=== PATIENT | male | born 1960 | race Caucasian/White ===

== ENCOUNTER 2018-01-20 16:05 | Emergency (ER) | payer OTHER, SELFPAY ==
--- NOTE | 2018-01-20 15:34 | RAD_ITS ---
STUDY: X-RAY - LEFT KNEE REASON FOR EXAM: Male, 57 years old. Pain while running. TECHNIQUE: 3 view(s) of the knee. COMPARISON: None. FINDINGS: Normal visualized distal femur. There is bony productivity at the insertion of the patellar tendon on the tibial tubercle, thought to be calcified tendinopathy. Normal visualized proximal fibula. Normal proximal tibiofibular articulation. There is no acute fracture, dislocation or destructive osseous pathology. Normal medial femorotibial compartment. Normal lateral femorotibial compartment. Normal patellofemoral articulation. There is a soft tissue prominence in the suprapatellar region suggesting a small volume joint effusion. The soft tissue structures are unremarkable. RAD/Knee 4 or More Views IMPRESSION: 1. Bony productivity at the insertion of the patellar tendon on the tibial tubercle. Question calcific tendinopathy. 2. Small suprapatellar joint effusion. Electronically Signed: Leandro Martinez DO at 14:52 EDT Tel [phone], Service support ,
--- NOTE | 2018-01-20 16:05 | DT_ITS ---
This patient was seen during an EMR downtime January 20, 2018 - January 27, 2018. This patient may have a combination of paper and electronic documentation or all paper documentation. All documentation is viewable within the e-chart portion of [facility] for each patient visit.
== END 2018-01-20 18:33 | disposition home or self-care (01) ==
LOC: ED 01-22 13:53
PROVIDERS: Emergency Provider Emergency Medicine; Family Provider Internal Medicine; PCP Internal Medicine
DX: S83.92XA Sprain of unspecified site of left knee, initial encounter (principal); X58.XXXA Exposure to other specified factors, initial encounter; Y93.9 Activity, unspecified; Y92.9 Unspecified place or not applicable
CPT/HCPCS: 73564; 99282

== ENCOUNTER → 2018-02-17 10:58 | Outpatient (CLI) | payer OTHER, SELFPAY ==
--- NOTE | 2018-02-17 11:31 | EKG12_ITS ---
Test Reason : PRE OP Blood Pressure : / mmHG Vent. Rate : 068 BPM Atrial Rate : 068 BPM P-R Int : 138 ms QRS Dur : 086 ms QT Int : 384 ms P-R-T Axes : 072 079 068 degrees QTc Int : 408 ms Normal sinus rhythm Normal ECG Confirmed by CARLEY OLIVER, CAREN ([id number]), editor newspaper STEVAN VINES ([id number]) on 02/18/2018 3:47:38 PM Referred By: Homero Rodas Confirmed By:CAREN HOWE MD
[2018-02-17 12:34] LABS: Hematocrit 44.8 % (40-54); Hemoglobin 15.1 g/dl (13.0-16.5); Mean Corp Hgb Conc 33.7 g/gl (32-36); Mean Corpuscular Hgb 32.3 pg (27.0-32.0); Mean Corpuscular Volume 95.7 fL (80-94); Mean Platelet Vol. 10.3 fl (6.2-12.0); Platelet Count 290 K/mm3 (150-450); RBC Distribution Width CV 12.7 % (11.6-14.6); RBC Distribution Width SD 43.2 fl (35.1-43.9); Red Blood Count 4.68 M/mm3 (4.6-6.2); White Blood Count 5.6 K/mm3 (4.4-11.0)
[2018-02-17 12:37] LABS: Scan Indicated on CBC? Y/N NO
[2018-02-17 12:49] LABS: Anion Gap 6 (5-15); BUN 26 mg/dL (7-18); BUN/Creat Ratio 25.7 RATIO (10-20); Calcium,Total 8.8 mg/dL (8.5-10.1); Chloride 107 mmol/L (98-107); Creatinine, Serum 1.01 mg/dL (0.70-1.30); EST Glomerular Filtration Rate 81 mL/min (>60); Est Glom Filt Rate - Afr Amer 98 mL/min (>60); Glucose 102 mg/dL (74-106); Potassium 4.4 mmol/L (3.5-5.1); Sodium Level 140 mmol/L (136-145)
== END ==
PROVIDERS: Visit Provider Orthopaedic Surgery
DX: Z01.818 Encounter for other preprocedural examination (principal)
CPT/HCPCS: 36415; 80048; 85027; 93005

== ENCOUNTER 2018-03-17 17:35 | Emergency (ER) | payer OTHER, SELFPAY ==
[2018-03-17 17:36] VITALS: BP 109/78; PULSE 75; RESP 16; TEMP 37; O2SAT 98; BMI 24.5
--- NOTE | 2018-03-17 18:07 | RAD_ITS ---
STUDY: X-RAY - RIGHT WRIST REASON FOR EXAM: Male, 57 years old. Pain. Injury TECHNIQUE: 3 view(s) of the wrist were obtained. COMPARISON: None. FINDINGS: Normal visualized distal radius and ulna. Normal radiocarpal articulation. Normal distal radioulnar articulation. Normal carpal bones. Normal carpal articulations. Normal carpometacarpal articulation of the thumb. Normal second through fifth carpometacarpal articulations. Normal visualized metacarpal bones. The soft tissue structures are unremarkable. There is no demonstrated acute fracture. RAD/Wrist min 3 Views IMPRESSION: Normal x-ray examination of the wrist. Electronically Signed: Daniel Farfan MD at 19:33 EDT , Service support ,
--- NOTE | 2018-03-17 18:08 | ED.VISSUMM ---
- ER Visit Summary Date of Service: 03/17/18 Chief Complaint: Right hand pain History of Present Illness: The patient is a 57 M presenting with right hand pain. Patient states on Saturday he was on a ladder power washing. He lost his balance and fell. He caught himself with his right hand. He states he did not hit his head or lose consciousness. He complains of persistent pain and swelling to the right hand. He has tried naproxen at home. He denies other injuries. Physical Examination: Vitals are stable. Patient is afebrile. Alert no acute distress. HEENT exam is unremarkable. Neck is nontender Lungs are clear and equal bilaterally. Heart is regular rate and rhythm. Extremities right hand dorsal swelling, diffuse mild tenderness, AFROM without pain, normal cap refill Skin is warm and dry. No focal neurologic deficit. Remainder of exam is unremarkable. Emergency Department Course and Treatment: Right hand and wrist xray show no acute process. He declined splint. Advised to ice and elevate. Advised to continue naproxen at home. Advised follow-up with Dr. Rodas his orthopedic surgeon. Advised return to ED if worsening complaints. Disposition: Discharge home Impression: Right hand contusion This note was generated with [employer]) dictation software. It may contain incorrect words, spelling, and punctuation that were not noted in review of the chart prior to signing ED Disposition - Plan for ED Patient: Disposition: Home or Assisted Living Chief Complaint: Upper Extremity Injury Instructions: ED Contusion Upper Ext Prescriptions: Naproxen [Naprosyn] 500 mg PO BID PRN #20 tablet Referrals: Homero Rodas DO [STAFF PHYSICIAN] - Care Physician,No Primary [Primary Care Provider] -
--- NOTE | 2018-03-17 18:30 | RAD_ITS ---
STUDY: X-RAY - RIGHT HAND REASON FOR EXAM: Male, 57 years old. Injury. Pain TECHNIQUE: 3 view(s) of the hand. COMPARISON: None. FINDINGS: Normal radiocarpal articulation. Normal distal radioulnar joint. Normal visualized carpal bones. Normal carpal articulations Normal carpometacarpal articulation of the thumb. Normal second through fifth carpometacarpal joints. Normal metacarpi. Normal metacarpophalangeal joint of the thumb. Normal interphalangeal joint of the thumb. Normal proximal and distal phalanges of the thumb. Normal metacarpophalangeal joints of the second through fifth fingers. Normal proximal and distal interphalangeal joints of the second through fifth fingers. Normal phalanges of the second through fifth fingers. The soft tissue structures are unremarkable. There is no fracture. RAD/Hand Min 3 Views IMPRESSION: Normal x-ray examination of the hand. Electronically Signed: Daniel Farfan MD at 19:35 EDT , Service support ,
--- NOTE | 2018-03-17 19:48 | ED.DEP ---
ED Disposition - Plan for ED Patient: Chief Complaint: Upper Extremity Injury Instructions: ED Contusion Upper Ext Referrals: Care Physician,No Primary [Primary Care Provider] - Homero Rodas DO [STAFF PHYSICIAN] -
--- NOTE | 2018-03-17 19:55 | ED.DEP ---
ED Disposition - Plan for ED Patient: Chief Complaint: Upper Extremity Injury Instructions: ED Contusion Upper Ext Prescriptions: Naproxen [Naprosyn] 500 mg PO BID PRN #20 tablet Referrals: Homero Rodas DO [STAFF PHYSICIAN] - Care Physician,No Primary [Primary Care Provider] -
--- NOTE | 2018-03-17 20:05 | ED.RN ---
PATIENT REFUSED WRIST SPLINT
== END 2018-03-17 20:07 | disposition home or self-care (01) ==
PROVIDERS: Emergency Provider Emergency Medicine
DX: S60.221A Contusion of right hand, initial encounter (principal); W11.XXXA Fall on and from ladder, initial encounter; Y93.H9 Activity, other involving exterior property and land maintenance, building and construction; Y92.008 Other place in unspecified non-institutional (private) residence as the place of occurrence of the external cause; Y99.8 Other external cause status
CPT/HCPCS: 73110; 73130; 99282

== ENCOUNTER → 2019-07-02 | Outpatient (CLI) | payer OTHER, SELFPAY ==
[2019-07-02 18:14] LABS: Cholesterol 184 mg/dL (200); High Density Lipoprotein 50 mg/dL; PSA,Total - Annual Screen 0.53 ng/mL (0.00-4.00); Triglycerides 87 mg/dL; Very Low Density Lipoprotein 17 mg/dL (5-40)
== END | disposition home or self-care (01) ==
LOC: MFPLAB 16:49
PROVIDERS: Family Provider Family Medicine; PCP Family Medicine; Referring Provider Family Medicine; Visit Provider Nurse Practitioner Family
DX: Z00.00 Encounter for general adult medical examination without abnormal findings (principal); Z12.5 Encounter for screening for malignant neoplasm of prostate
CPT/HCPCS: 36415; 80061; 84153; G0103

== ENCOUNTER → 2020-06-15 | Outpatient (CLI) | payer OTHER, SELFPAY ==
--- NOTE | 2020-06-15 09:41 | US_ITS ---
HISTORY: PALP LUMP LEFT LAT NECK ADDITIONAL HISTORY: None provided. COMPARISON: None. TECHNIQUE: High-resolution grayscale and color Doppler sonography of the region of clinical concern in the left lateral neck. Number of images including paperwork: 13 FINDINGS: Normal morphology lymph nodes are seen in the region of clinical concern measuring 1.5 x 0.4 x 1.2 cm and 1.5 x 0.2 x 0.7 cm. US/Ext Non Vasc Limited/Soft Tiss IMPRESSION: Normal morphology lymph nodes in region of probable concern. Clinical follow-up recommended. at [id number] Reported and signed by: Kyara Cheng MD Electronically Signed: Kyara Cheng MD at 22:34 EDT Tel , Service support ,
== END | disposition home or self-care (01) ==
LOC: US 09:39
PROVIDERS: PCP Family Medicine; Referring Provider Family Medicine; Visit Provider Family Medicine
DX: R22.9 Localized swelling, mass and lump, unspecified (principal)
CPT/HCPCS: 76882

== ENCOUNTER 2021-08-12 18:25 | Emergency (ER) | payer OTHER, SELFPAY ==
[2021-08-12 18:26] VITALS: BP 154/79; PULSE 94; RESP 18; TEMP 36.9; O2SAT 98; BMI 26.9
--- NOTE | 2021-08-12 18:30 | EX.ED.DYSGE1 ---
HPI History of Present Illness Chief Complaint: Allergic Reaction Informant: patient Onset/Context/Timing Onset: Today (20-30 min) Context: Sudden Onset Timing: Continuous Quality: Tongue swelling, itchy, red all over Current Severity: Moderate Maximum Severity: Moderate Associated Symptoms Associated Symptoms: No dyspnea or chest tightness or lightheadedness/near syncope/syncope Narrative Narrative: Patient presenting with an acute allergic reaction that has been going on for 20 or 30 minutes, he states maybe started about an hour after he started drinking some red wine, and was snacking on some other foods today on [place]. He has never had this happen before. He takes no medications, including lisinopril. He has taken no [id number] medications today. He denies any other unusual exposures he can think of today. Prior similar symptoms: No Recent Illness/Hospitalization: No PFSH PFS Medical History Hay fever Home Medications prednisone 40 mg PO DAILY #6 tablet 08/12/21 [Rx Last Taken Unknown] Allergy/AdvReac Type Severity Reaction Status Date / Time No Known Allergies Allergy Verified 08/12/21 18:30 Family History (Updated 12/24/17 @ 11:40 by Debra Emery) Other Diabetes Social History Smoking Status: Never smoker alcohol intake: current alcohol intake frequency: holidays/special occasions only Alcohol type: wine ROS ROS ED Constitutional Constitutional ED: Denies chills or fever(s) Eyes Eyes: Denies change in vision or diplopia ENT ENT ED: Reports tongue swelling; Denies rhinorrhea or sore throat Cardiovascular Cardiovascular: Denies chest pain or palpitations Respiratory/Chest Respiratory/Chest: Denies cough or dyspnea Gastrointestinal Gastrointestinal: Denies abdominal pain, diarrhea, nausea or vomiting Genitourinary Genitourinary ED: Denies dysuria or hematuria Musculoskeletal Musculoskeletal: Denies back pain or neck pain Integumentary Reports erythema, pruritus and rash; Denies abscess Neurologic Neurologic: Denies headache(s), paresthesias or weakness Psychiatric Psychiatric: Reports anxiety; Denies suicidal thoughts EXAM Physical Exam Const Vital Signs: 08/12/21 18:26 08/12/21 18:31 08/12/21 20:14 Temperature 98.4 F Temperature Source Temporal Pulse Rate 94 84 76 Respiratory Rate 18 20 H 15 Blood Pressure 154/79 H 143/75 H 114/74 Blood Pressure Mean 104 97 87 Pulse Ox 98 97 97 Oxygen Delivery Method Room Air Room Air Room Air 08/12/21 20:44 Temperature Temperature Source Pulse Rate 76 Respiratory Rate 16 Blood Pressure 126/73 H Blood Pressure Mean 90 Pulse Ox 98 Oxygen Delivery Method Room Air Positive well nourished and well developed General Appearance ED: well developed and NAD HEENT Reports moist mucous membranes HEENT Narrative: Tongue is mildly diffusely edematous mostly anteriorly. Able to see posterior oropharynx which is normal. No trismus. No stridor. Lips normal. normocephalic and atraumatic Mouth ED: Yes lips normal Mouth: lips normal Eyes PERRL and EOMs intact bilaterally Neck full ROM and supple Resp normal respiratory effort and clear to auscultation bilaterally Cardio regular rate, regular rhythm and no murmurs Jugular Venous Distention: Negative for JVD Rate: tachycardic GI non-tender and non-distended Auscultation: normoactive bowel sounds Palpation: soft Back/Spine no CVA tenderness General Back: other FROM Extremity normal to inspection General Extremety ED: Negative for edema, pulses abnormal or tenderness General Extremity: Negative for edema or pulses abnormal Neuro oriented x3, CN's II-XII intact bilaterally and no sensory deficits noted Sensorium / Orientation: awake and alert Motor Exam: strength 5/5 throughout Psych mental status grossly normal, thought process normal, cooperative, speech normal and activity/motor behavior normal Mood & Affect: anxious Skin no wounds Skin Narrative: Patient is flushed/erythematous from head to toe; no other rashes or lesions, no bullae or petechia MDM MDM MDM Narrative Medical decision making narrative: Patient appears to be early anaphylaxis. His tongue is mildly edematous but he does not need immediate intubation; he is having no shortness of breath, he was able to swallow after this started occurring, and he has no stridor or imminent airway failure. Nurses place an IV during my evaluation, and we immediately gave him IV Solu-Medrol, Benadryl, Pepcid in addition to a dose of intramuscular EpiPen 0.3 mg (intramuscular epinephrine comes in EpiPen here, initially ordered 0.5 mg but it is not available). Soon thereafter he noticed quick improvement but his tongue was still swollen. An hour after the dose, his tongue was back to normal and his flushing/erythema was completely resolved. Vital signs normal. We continue to observe him for a total of almost 3.5 hours, he had no recurrence of any symptoms and felt back to normal. Therefore, I feel he is safe to discharge home, he is being discharged with an actual EpiPen since there are no pharmacies open to dispense this medication tonight on [place] evening, as well as prednisone 3-day course in addition to the Solu-Medrol he received here. I suspect it was a food that he ate that caused this, I recommend that he follow-up with his doctor or machine clerical verifier to be referred for testing. We discussed reasons to return they are comfortable with the plan. Critical Care Time Critical Care Time: Yes Critical care time (excluding procedures): 30-74 minutes (40 min), Including time spent:, Discussing w/Patient &/or Family/Assistant Corporate Controller and Performing Direct Patient Care at Bedside Discharge Plan Triage Chief Complaint: Allergic Reaction ED Provider: Daniel Samayoa Dx/Rx/DC Orders Clinical Impression: Anaphylaxis, Allergic angioedema Instructions: ED Anaphylaxis Prescriptions: New prednisone 20 MG tablet 40 mg PO DAILY Qty: 6 RF: 0 Primary Care Provider: Jared Khanna Referrals: Jared Khanna MD [Primary Care Provider] - As soon as possible Disposition Disposition: Home, Self Care
[2021-08-12 18:31] VITALS: BP 143/75; PULSE 84; RESP 20; O2SAT 97
[2021-08-12] MEDS: MethylPREDNISolone 125 MG/2 ML Vial IV (18:35)
[2021-08-12] MEDS: DiphenhydrAMINE 50 MG/ML Syringe 25 MG IV (18:35)
[2021-08-12] MEDS: Famotidine 200 MG/20 ML MDV 20 MG in 0.9% Normal Saline (Pres. free 8 ML 300 MG IV (18:39)
[2021-08-12 20:14] VITALS: BP 114/74; PULSE 76; RESP 15; O2SAT 97
[2021-08-12 20:44] VITALS: BP 126/73; PULSE 76; RESP 16; O2SAT 98
[2021-08-12 21:49] VITALS: BP 114/66; PULSE 73; RESP 21; O2SAT 96
== END 2021-08-12 21:51 | disposition home or self-care (01) ==
PROVIDERS: Emergency Provider Emergency Medicine; PCP Family Medicine
DX: T78.3XXA Angioneurotic edema, initial encounter (principal); Z79.52 Long term (current) use of systemic steroids
CPT/HCPCS: 96365; 96372; 96375; 99285; J7040; A4216; J3490

== ENCOUNTER 2022-04-12 21:33 | Emergency (ER) | payer OTHER, SELFPAY ==
[2022-04-12 21:34] VITALS: BP 103/75; PULSE 73; RESP 18; TEMP 36.6; O2SAT 98; BMI 24.4
--- NOTE | 2022-04-12 22:20 | EKG12_ITS ---
Test Reason : ALLERGIC REACTION Blood Pressure : / mmHG Vent. Rate : 068 BPM Atrial Rate : 068 BPM P-R Int : 138 ms QRS Dur : 090 ms QT Int : 382 ms P-R-T Axes : 072 067 045 degrees QTc Int : 406 ms Normal sinus rhythm Normal ECG Confirmed by SELENE OLIVER, LEE ([id number]), story editor SHELLIE RIVERA ([id number]) on 04/16/2022 9:31:16 AM Referred By: Confirmed By:RAMIREZ MORTON MD
--- NOTE | 2022-04-12 22:45 | EDS_ITS ---
HPI History of Present Illness Chief Complaint: Allergic Reaction Informant: patient Narrative Narrative: Patient presents for allergic reaction status post epinephrine at 9 PM. Patient was not at work and went he drank 3/4 glasses of wine he did not eat anything. An hour after drinking get home he noted generalized severe itching. He gave self epinephrine shot in the right thigh 2 minutes later he had a syncopal episode. He had some palpitations that time. He landed on the ground abrasion to the head. Denies headache. No anticoagulation medicines. He states a similar reaction this past July that which he found out that was the same wine he drank today. He had angioedema at that time he was seen in the ED he was nearly hospitalized. Currently feeling better with mild itching. EMS was called to the house who evaluated him. He was brought in by private vehicle. Prior similar symptoms: Yes PFSH [facility] Medical History Hay fever Home Medications epinephrine 0.3 mg/0.3 mL injection, auto-injector (EpiPen 2-Morgan) 0.3 mg (0.3 mL) IM .once PRN anaphylaxis #2 ea 04/12/22 [Rx Last Taken Unknown] famotidine 20 mg tablet (Pepcid) 20 mg PO BID #10 tabs 04/12/22 [Rx Last Taken Unknown] prednisone 20 mg tablet 60 mg PO DAILY #12 tabs 04/12/22 [Rx Last Taken Unknown] Allergy/AdvReac Type Severity Reaction Status Date / Time wine spirit Allergy Anaphylaxis Verified 04/12/22 21:37 Family History Other Diabetes Social History Smoking Status: Never smoker alcohol intake: current alcohol intake frequency: holidays/special occasions only Alcohol type: wine ROS ROS ED Constitutional Constitutional ED: Denies chills, fever(s) or sweats Eyes Eyes: Denies change in vision ENT ENT ED: Denies dysphagia or sore throat Cardiovascular Cardiovascular: Reports other Details: Syncope ; Denies chest pain, leg edema, palpitations or racing heartbeat Respiratory/Chest Respiratory/Chest: Denies cough, dyspnea or dyspnea on exertion Gastrointestinal Gastrointestinal: Denies abdominal pain, diarrhea, nausea or vomiting Genitourinary Genitourinary ED: Denies dysuria, hematuria or urinary frequency Musculoskeletal Musculoskeletal: Denies back pain, extremity pain or neck pain Integumentary Reports other Details: Generalized itching ; Denies rash or wounds Neurologic Neurologic: Denies headache(s), paresthesias or weakness EXAM Physical Exam Const Vital Signs: 04/12/22 21:34 04/12/22 23:58 Temperature 97.9 F Temperature Source Temporal Pulse Rate 73 73 Respiratory Rate 18 Blood Pressure 103/75 Blood Pressure Mean 84 Pulse Ox 98 Oxygen Delivery Method Room Air Positive well nourished and well developed General Appearance ED: well developed and NAD HEENT Reports moist mucous membranes HEENT Narrative: Abrasion right forehead x2, no active bleeding. normocephalic Eyes PERRL, EOMs intact bilaterally and conjunctivae normal General Eye ED: Yes normal appearance of both eyes Neck no lymphadenopathy and supple General: Negative for tenderness Chest Wall Chest: Negative for tenderness Resp normal respiratory effort and normal air movement Effort and Inspection: symmetric chest movement; Negative for respiratory distress Cardio regular rate, regular rhythm and no murmurs Peripheral Pulses: pulses 2+ throughout GI normal to inspection, nondistended, normoactive bowel sounds and non-tender Palpation: Negative for guarding or rebound tenderness present Back/Spine no CVA tenderness and no thoracic nor lumbar tenderness Extremity normal to inspection General Extremety ED: Negative for edema or tenderness General Extremity: Negative for edema Neuro oriented x3, CN's II-XII intact bilaterally and no sensory deficits noted Neuro Narrative: No focal neurological deficits. Sensorium / Orientation: awake and alert Skin no rashes or lesions noted and no wounds MDM MDM MDM Narrative Medical decision making narrative: Patient with allergic reaction to likely the wind with recurrent episodes. Status post epinephrine. Additional prednisone Pepcid and Benadryl was given. EKGs obtained due to syncopal episodes normal. Likely vasovagal episode. Has no focal deficits. Pruritic symptoms improved with treatment most reevaluations stable. Prescription Pepcid, prednisone, EpiPen written. He will use Benadryl as needed. Follow-up with his PCP. Return precautions. All questions were answered. EKG Initial EKG: Attestation: I personally reviewed and interpreted this EKG as follows: Comments: Sinus rate of 68, no ST or T wave changes QTC 406. Discharge Plan Triage Chief Complaint: Allergic Reaction ED Provider: Fab Myers Dx/Rx/DC Orders Clinical Impression: Allergic reaction, Syncope, Abrasion of face Instructions: Understanding Vasovagal Syncope, ED Abrasion, ED General Allergic Reactions Prescriptions: New prednisone 20 mg tablet 60 mg PO DAILY Qty: 12 0RF famotidine [Pepcid] 20 mg tablet 20 mg PO BID Qty: 10 0RF epinephrine [EpiPen 2-Morgan] 0.3 mg/0.3 mL auto-injector 0.3 mg IM .once PRN (Reason: anaphylaxis) Qty: 2 0RF Rx Instructions: repeat in 10 minutes if needed. for 2 doses Primary Care Provider: Jared Khanna Referrals: Jared Khanna MD [Primary Care Provider] - 1 Week Activity Restrictions/Additional Instructions: Take medication as prescribed. Return if any worsening symptoms. Use Benadryl 25 to 50 mg every 6 hours as needed. Disposition Disposition: Home, Self Care Discharge Date/Time: 04/13/22 00:12
[2022-04-12] MEDS: Famotidine 20 MG Tablet PO (22:47)
[2022-04-12] MEDS: predniSONE 20 MG Tablet 60 MG PO (22:47)
[2022-04-12] MEDS: DiphenhydrAMINE 25 MG Capsule PO (22:47)
[2022-04-12 23:58] VITALS: PULSE 73
== END 2022-04-13 00:12 | disposition home or self-care (01) ==
PROVIDERS: Emergency Provider Emergency Medicine; PCP Family Medicine; Visit Provider Emergency Medicine
DX: T78.40XA Allergy, unspecified, initial encounter (principal); R55 Syncope and collapse; S00.81XA Abrasion of other part of head, initial encounter; Z79.52 Long term (current) use of systemic steroids; W19.XXXA Unspecified fall, initial encounter
CPT/HCPCS: 93005; 99282

== ENCOUNTER → 2022-10-16 | Outpatient (CLI) | payer OTHER, SELFPAY ==
[2022-10-16 12:24] LABS: Hematocrit 46.5 % (40-54); Hemoglobin 15.1 g/dL (13.0-16.5); Mean Corp Hgb Conc 32.5 g/dL (32-36); Mean Corpuscular Hgb 30.9 pg (27.0-32.0); Mean Corpuscular Volume 95.3 fL (80-94); Platelet Count 343 K/mm3 (150-450); RBC Distribution Width CV 12.2 % (11.6-14.6); RBC Distribution Width SD 42.1 fl (35.1-43.9); Red Blood Count 4.88 M/mm3 (4.6-6.2); White Blood Count 5.4 K/mm3 (4.4-11.0)
[2022-10-16 13:04] LABS: ALB/GLOB Ratio 0.9 RATIO (0.9-2.4); AST(SGOT) 22 U/L (15-37); Alanine Aminotransfer ALT/SGPT 23 U/L (16-61); Albumin, Serum 3.4 g/dL (3.2-5.0); Alkaline Phosphatase 62 U/L (45-117); Anion Gap 7 (5-15); BUN 22 mg/dL (7-18); Calcium,Total 9.2 mg/dL (8.5-10.1); Chloride 106 mmol/L (98-107); Cholesterol 183 mg/dL (200); Creatinine, Serum 1.05 mg/dL (0.70-1.30); EST Glomerular Filtration Rate 76 mL/min (>60); Est Glom Filt Rate - Afr Amer 92 mL/min (>60); Globulin 3.8 g/dL (2.2-4.2); Glucose 86 mg/dL (74-106); High Density Lipoprotein 50 mg/dL; PSA,Total - Annual Screen 0.63 ng/mL (0.00-4.00); Potassium 4.4 mmol/L (3.5-5.1); Protein, Total 7.2 g/dL (6.4-8.2); Sodium Level 139 mmol/L (136-145); Triglycerides 78 mg/dL; Very Low Density Lipoprotein 16 mg/dL (5-40)
== END | disposition home or self-care (01) ==
PROVIDERS: PCP Family Medicine; Referring Provider Family Medicine; Visit Provider Nurse Practitioner Family
DX: Z13.1 Encounter for screening for diabetes mellitus (principal); Z13.220 Encounter for screening for lipoid disorders; Z12.5 Encounter for screening for malignant neoplasm of prostate
CPT/HCPCS: 36415; 80053; 80061; 84153; 85027; G0103

== ENCOUNTER 2022-11-14 21:16 | Emergency (ER) | payer OTHER, SELFPAY ==
[2022-11-14 21:18] VITALS: BP 118/88; PULSE 93; RESP 16; TEMP 36.6; O2SAT 97
[2022-11-14 21:24] VITALS: BMI 26.1
[2022-11-14] MEDS: Epi Pen (EQUIV) 0.3 MG Syringe IM (21:27)
[2022-11-14] MEDS: MethylPREDNISolone 125 MG/2 ML Vial IV (21:29)
[2022-11-14] MEDS: DiphenhydrAMINE 50 MG/ML Syringe IV (21:29)
[2022-11-14] MEDS: 0.9% Normal Saline 1,000 ML 999 ML IV (21:29)
[2022-11-14] MEDS: Famotidine 200 MG/20 ML MDV 20 MG in 0.9% Normal Saline (Pres. free 8 ML 300 MG IV (21:35)
[2022-11-14 21:42] VITALS: PULSE 89; RESP 16
[2022-11-14] MEDS: Albuterol 2.5 MG/3 ML VIAL.NEB. INHALATION (21:42)
[2022-11-14 22:30] VITALS: BP 121/74; PULSE 77; RESP 20; O2SAT 97
--- NOTE | 2022-11-14 22:33 | EDS_ITS ---
HPI <Dr. Lobo Marquis MD - Last Filed: 11/16/22 00:20> History of Present Illness Chief Complaint: Allergic Reaction Detail of Chief Complaint: Patient presents with allergic reaction. He was eating Syriac food. Informant: patient and spouse/S.O. Onset/Context/Timing Onset: Hours Context: Sudden Onset Timing: Continuous Quality: Swelling mouth, change in voice, rash Location: Systemic allergic reaction Current Severity: Severe Maximum Severity: Severe Worsened by: Unknown Relieved by: Not applicable Associated Symptoms Associated Symptoms: No orthostatic symptoms Narrative Narrative: Patient is a 62-year-old male. He is on no medication. He was at a restaurant eating Syriac food with his . He developed swelling of his mouth with change in voice and rash. He apparently has had 2 prior reactions. He never followed up for allergy testing. He denies headache, visual, ocular auditory symptoms. He denies chest pain. He denies history of coronary disease nor does he have any risk factors. He does endorse nausea without vomiting or diarrhea. He denies shortness of breath. He does have wheezing noted. He denies history of asthma as an adult or child. He is a non-smoker. He has no other complaints. informed me that his EpiPen . He did not get a refill. Prior similar symptoms: Yes Recent Illness/Hospitalization: No PFSH <Dr. Lobo Marquis MD - Last Filed: 11/16/22 00:20> [facility] Medical History Hay fever Home Medications epinephrine 0.3 mg/0.3 mL injection, auto-injector (EpiPen 2-Morgan) 0.3 mg (0.3 mL) IM .once PRN anaphylaxis #2 ea 04/12/22 [Rx Last Taken Unknown] famotidine 20 mg tablet (Pepcid) 20 mg PO BID #10 tabs 04/12/22 [Rx Last Taken Unknown] prednisone 20 mg tablet 60 mg PO DAILY #12 tabs 04/12/22 [Rx Last Taken Unknown] epinephrine 0.3 mg/0.3 mL injection, auto-injector (EpiPen) 0.3 mg (0.3 mL) IM UD PRN anaphylaxis #1 ea 11/14/22 [Rx Last Taken Unknown] Allergy/AdvReac Type Severity Reaction Status Date / Time wine spirit Allergy Anaphylaxis Verified 04/12/22 21:37 Family History Other Diabetes Surgical History no surgical history no surgical history Social History (Updated 11/14/22 @ 22:[address] Lobo Marquis MD) household members: spouse Smoking Status: Never smoker alcohol intake: current alcohol intake frequency: holidays/special occasions only Alcohol type: wine ROS <Dr. Lobo Marquis MD - Last Filed: 11/16/22 00:20> ROS ED Constitutional Constitutional ED: Denies chills, fever(s), subjective or sweats Eyes Eyes: Denies blurry vision, change in vision or diplopia ENT ENT ED: Reports other Details: Swelling throat, dysphonia, and facial swelling per . ; Denies ear pain, rhinorrhea or sore throat Cardiovascular Cardiovascular: Denies chest pain or palpitations Respiratory/Chest Respiratory/Chest: Denies cough, dyspnea or dyspnea on exertion Gastrointestinal Gastrointestinal: Reports nausea; Denies abdominal pain or vomiting Musculoskeletal Musculoskeletal: Denies arthralgias, back pain, myalgias or neck pain Integumentary Reports rash; Denies Abrasions Neurologic Neurologic: Denies headache(s), paresthesias or weakness Psychiatric Psychiatric: Reports anxiety Endocrine Endocrinology: Denies cold intolerance or heat intolerance Hematologic/Lymphatic Hematologic/Lymphatic: Reports systems reviewed and no addt'l complaints, except as documented EXAM <Dr. Lobo Marquis MD - Last Filed: 11/16/22 00:20> Physical Exam Const Vital Signs: 11/15/22 00:47 Pulse Rate 79 Respiratory Rate 17 Blood Pressure 121/70 H Pulse Ox 96 Positive well nourished and well developed General Appearance ED: well developed; Negative for cyanotic, diaphoretic, NAD or pallor HEENT HEENT Narrative: There is facial swelling. Patient has evidence of angioedema involving the soft palate and uvula. There is dysphonia. There is no drooling. The remainder of his HEENT exam was unremarkable. Eyes PERRL and EOMs intact bilaterally General Eye ED: Negative for pale conjunctiva or scleral icterus Neck no lymphadenopathy, supple and no JVD Neck Narrative: Trachea is midline. There is no air or expiratory stridor. Chest Wall inspection of chest normal and palpation of chest normal Resp normal respiratory effort and No clear to auscultation bilaterally Auscultation: wheezes expiratory wheezes, scattered wheezes and throughout Cardio regular rate, regular rhythm, S1 normal heart sound, S2 normal heart sound and no murmurs GI normal to inspection, nondistended, normoactive bowel sounds, non-tender, non-distended and no masses; Negative for hepatosplenomegaly Back/Spine no CVA tenderness Extremity normal to inspection General Extremety ED: Negative for edema or tenderness General Extremity: Negative for edema Neuro oriented x3, CN's II-XII intact bilaterally and no sensory deficits noted Sensorium / Orientation: alert Psych mental status grossly normal Psych Narrative: Blanching erythematous total body rash. Skin no wounds and skin turgor normal General Skin Exam: elasticity normal; Negative for jaundice or pallor Rashes: rashes noted <Dr. Daniel Samayoa MD - Last Filed: 11/15/22 00:16> Physical Exam Const Vital Signs: 11/15/22 00:47 Pulse Rate 79 Respiratory Rate 17 Blood Pressure 121/70 H Pulse Ox 96 MDM <Dr. Lobo Marquis MD - Last Filed: 11/16/22 00:20> [facility] Narrative Medical decision making narrative: Patient has a generalized systemic allergic reaction with angioedema and bronchospasm. He was seen immediately. Nurse was concerned he had angioedema. Since patient has angioedema with other IgE mediated responses we will treat with epinephrine, Solu-Medrol, Benadryl and Pepcid. Patient is not on an OSVALDO inhibitor or ARB. 5 minutes after the administration of epinephrine he was reassessed. The angioedema improved approximately 25%. The rash had lessened. He still had wheezing but improved. He was reassessed at 2158. The rash has resolved. His voice has improved. The angioedema has improved by 50%. Patient is now wheeze free. Patient was reassessed at 9. Rash recent laura absent. His voice has normalized. There is still evidence of angioedema. There has been slight improvement. Auscultation of the lungs revealed no abnormality. Patient was reassessed at 2258. Patient is now able to breathe through his nose. There is no rash. There is no respiratory distress. There is no wheezing. There is no hemodynamic instability. The night physician was made aware of patient and will reassess in approximately 60 minutes. He was made aware of patient's presentation. He was made aware of treatment. History & Record Review Discussion w/independent historian: Patient and Significant other Additional record(s) reviewed:: Prior ED visit (To prior allergic reactions.) <Dr. Daniel Samayoa MD - Last Filed: 11/15/22 00:16> [facility] Treatment and Re-Evaluation Comments:: 0015: Took over care of this patient and reevaluated him. He is doing well. He is breathing normally. His vital signs are normal. He is a bit of a hot potato voice, he sticks his tongue out it looks like it may be mildly swollen but this is the first time I evaluated it and he states it is much better than before, has continued to be, and this includes since 1 hour ago the last time the other ED physician evaluated him. He is comfortable going home. He is not had epinephrine in about 3 hours. His EpiPen prescription has been sent to the retail pharmacy here, he is filling it, and he will be observed for another 15 or 20 minutes until that is available, and he will leave with the EpiPen itself with instructions for use. All questions answered at the bedside they are comfortable with this overall plan. <Dr. Lobo Marquis MD - Last Filed: 11/16/22 00:20> Critical Care Time Critical Care Time: Yes Critical care time (excluding procedures): 30-74 minutes (31), Including time spent: (History, physical, documentation with , review of prior records,), Discussing w/Patient &/or Family/Denitrator Operator (He and were informed of the importance to follow-up with Dr. Araya who is seen in the past for allergy testing. He has been told he needs to carry his EpiPen with him at all times. He should not left the prescription .) and Performing Direct Patient Care at Bedside (Repeat examination several times during his ER course.) Discharge Plan Triage Chief Complaint: Allergic Reaction ED Provider: Lobo Marquis Dx/Rx/DC Orders Clinical Impression: Anaphylaxis, Allergic angioedema due to ingested food, Acute bronchospasm Instructions: ED Anaphylaxis, ED Using an Injection Pen Prescriptions: New epinephrine [EpiPen] 0.3 mg/0.3 mL auto-injector 0.3 mg IM UD PRN (Reason: anaphylaxis) Qty: 1 0RF No Action prednisone 20 mg tablet 60 mg PO DAILY Qty: 12 0RF famotidine [Pepcid] 20 mg tablet 20 mg PO BID Qty: 10 0RF epinephrine [EpiPen 2-Morgan] 0.3 mg/0.3 mL auto-injector 0.3 mg IM .once PRN (Reason: anaphylaxis) Qty: 2 0RF Rx Instructions: repeat in 10 minutes if needed. for 2 doses Primary Care Provider: Jared Khanna Referrals: Jared Khanna MD [Primary Care Provider] - Richard Aviles MD [Med Staff - Active Staff] - 3-5 Days Activity Restrictions/Additional Instructions: 1. You need to carry your EpiPen with you at all times since the offending food/item that causes your anaphylactic reaction is unknown. 2. Call Dr. Richard Araya's office in the morning for follow-up appointment and allergy testing. 3. If you have an allergic reaction use your EpiPen immediately Disposition Disposition: Home, Self Care Discharge Date/Time: 11/15/22 00:49
[2022-11-14 23:00] VITALS: BP 122/79; PULSE 81; RESP 17; O2SAT 96
[2022-11-15] VITALS: BP 113/74; PULSE 79; RESP 18; O2SAT 96
[2022-11-15 00:47] VITALS: BP 121/70; PULSE 79; RESP 17; O2SAT 96
== END 2022-11-15 00:49 | disposition home or self-care (01) ==
PROVIDERS: Emergency Provider Emergency Medicine; PCP Family Medicine; Visit Provider Emergency Medicine
DX: T78.00XA Anaphylactic reaction due to unspecified food, initial encounter (principal); J98.01 Acute bronchospasm
CPT/HCPCS: 94640; 96361; 96374; 96375; 99283; J7030; A4216; J3490

== ENCOUNTER 2022-12-29 20:52 | Emergency (ER) | payer OTHER, SELFPAY ==
[2022-12-29 20:54] VITALS: BP 159/81; PULSE 82; RESP 16; TEMP 37.1; O2SAT 98; BMI 25.7
--- NOTE | 2022-12-29 21:00 | EX.ED.DYSGE1 ---
HPI History of Present Illness Chief Complaint: Allergic Reaction Informant: patient and spouse/S.O. Narrative Narrative: Presents concerning allergic reaction after eating English food again with different extra soy sauce placed. Similar reaction a month and a half ago. He states since then has had allergy testing has been negative. He actually had an incident with wine last March using epinephrine pen and passing out. Feels some discomfort in the roof of his mouth no trouble swallowing no trouble breathing. Feels tingling. PFSH PFSH Medical History Hay fever Home Medications epinephrine 0.3 mg/0.3 mL injection, auto-injector (EpiPen 2-Morgan) 0.3 mg (0.3 mL) IM .once PRN anaphylaxis #2 ea 04/12/22 [Rx Last Taken Unknown] epinephrine 0.3 mg/0.3 mL injection, auto-injector (EpiPen) 0.3 mg (0.3 mL) IM UD PRN anaphylaxis #1 ea 11/14/22 [Rx Last Taken Unknown] famotidine 20 mg tablet 20 mg PO BID #10 TABLETS 12/29/22 [Rx Last Taken Unknown] prednisone 20 mg tablet 60 mg PO DAILY #12 TABLETS 12/29/22 [Rx Last Taken Unknown] Allergy/AdvReac Type Severity Reaction Status Date / Time wine spirit Allergy Anaphylaxis Verified 04/12/22 21:37 Family History Other Diabetes Social History household members: spouse Smoking Status: Never smoker alcohol intake: current alcohol intake frequency: holidays/special occasions only Alcohol type: wine ROS ROS ED Constitutional Constitutional ED: Denies chills, fever(s) or sweats Eyes Eyes: Denies change in vision ENT ENT ED: Denies dysphagia or sore throat Cardiovascular Cardiovascular: Denies chest pain, leg edema, palpitations or racing heartbeat Respiratory/Chest Respiratory/Chest: Denies cough, dyspnea or dyspnea on exertion Gastrointestinal Gastrointestinal: Denies abdominal pain, diarrhea, nausea or vomiting Genitourinary Genitourinary ED: Denies dysuria, hematuria or urinary frequency Musculoskeletal Musculoskeletal: Denies back pain, extremity pain or neck pain Integumentary Denies rash or wounds Neurologic Neurologic: Denies headache(s), paresthesias or weakness EXAM Physical Exam Const Vital Signs: 12/29/22 20:54 12/29/22 21:40 Temperature 98.8 F Temperature Source Temporal Pulse Rate 82 Respiratory Rate 16 Blood Pressure 159/81 H Blood Pressure Mean 107 Pulse Ox 98 95 Oxygen Delivery Method Room Air Room Air Positive well nourished and well developed Constitutional Narrative: Skin flushing General Appearance ED: well developed and NAD HEENT Reports moist mucous membranes HEENT Narrative: With patent no stridor no tongue or lip swelling normocephalic and atraumatic Eyes PERRL, EOMs intact bilaterally and conjunctivae normal General Eye ED: Yes normal appearance of both eyes Neck no lymphadenopathy and supple General: Negative for tenderness Chest Wall Chest: Negative for tenderness Resp normal respiratory effort and normal air movement Effort and Inspection: symmetric chest movement; Negative for respiratory distress Cardio regular rate, regular rhythm and no murmurs Peripheral Pulses: pulses 2+ throughout GI normal to inspection, nondistended, normoactive bowel sounds and non-tender Palpation: Negative for guarding or rebound tenderness present Back/Spine no CVA tenderness and no thoracic nor lumbar tenderness Extremity normal to inspection General Extremety ED: Negative for edema or tenderness General Extremity: Negative for edema Neuro oriented x3 and no sensory deficits noted Sensorium / Orientation: awake and alert Skin no rashes or lesions noted and no wounds Skin Narrative: No urticarial lesions. MDM MDM MDM Narrative Medical decision making narrative: Interventions / MDM: Differential diagnosis: Allergic reaction Diagnosis considered but do not suspect: N/A My EKG interpretation: N/A Imaging independently reviewed and interpreted by myself: N/A External documents reviewed: N/A Test considered but not ordered:N/A ED course: IV established patient given Pepcid Benadryl and Solu-Medrol. Vitals are stable. He will be monitored. Sinus rhythm on the monitor. Re-evaluation: Multiple reevaluations improving symptoms. He has epinephrine at home. Prescription for prednisone and Pepcid sent to his pharmacy. Return precautions. Disposition discussed with patient/family/significant other: Patient and significant other Case discussed with consulting clinician: N/A Discharge Plan Triage Chief Complaint: Allergic Reaction ED Provider: Fab Myers Dx/Rx/DC Orders Clinical Impression: Allergic reaction Instructions: ED General Allergic Reactions Prescriptions: New prednisone 20 mg tablet 60 mg PO DAILY Qty: 12 0RF famotidine [famotidine] 20 mg tablet 20 mg PO BID Qty: 10 0RF No Action epinephrine [EpiPen 2-Morgan] 0.3 mg/0.3 mL auto-injector 0.3 mg IM .once PRN (Reason: anaphylaxis) Qty: 2 0RF Rx Instructions: repeat in 10 minutes if needed. for 2 doses epinephrine [EpiPen] 0.3 mg/0.3 mL auto-injector 0.3 mg IM UD PRN (Reason: anaphylaxis) Qty: 1 0RF Primary Care Provider: Jared Khanna Referrals: Jared Khanna MD [Primary Care Provider] - 3-5 Days Activity Restrictions/Additional Instructions: Continue Benadryl every 6 hours as needed take Pepcid and prednisone as prescribed next dose of medications tomorrow. Follow-up with your doctor. Return if worsening symptoms. Disposition Disposition: Home, Self Care
[2022-12-29] MEDS: DiphenhydrAMINE 50 MG/ML Syringe IV (21:03)
[2022-12-29] MEDS: MethylPREDNISolone 125 MG/2 ML Vial IV (21:03)
[2022-12-29] MEDS: Famotidine 200 MG/20 ML MDV 20 MG in 0.9% Normal Saline (Pres. free 8 ML 300 MG IV (21:06)
[2022-12-29 21:40] VITALS: O2SAT 95
[2022-12-29 22:30] VITALS: BP 121/70; PULSE 82; RESP 16; O2SAT 96
== END 2022-12-29 22:38 | disposition home or self-care (01) ==
PROVIDERS: Emergency Provider Emergency Medicine; PCP Family Medicine; Visit Provider Emergency Medicine
DX: T78.1XXA Other adverse food reactions, not elsewhere classified, initial encounter (principal); Z79.899 Other long term (current) drug therapy
CPT/HCPCS: 96374; 96375; 99283; A4216; J3490

== ENCOUNTER → 2023-09-10 | Outpatient (CLI) | payer OTHER, SELFPAY ==
--- NOTE | 2023-09-10 16:10 | RAD_ITS ---
STUDY: X-RAY - CERVICAL SPINE REASON FOR EXAM: Male, 62 years old. cervicalgia TECHNIQUE: 4 view(s) of the cervical spine were obtained. COMPARISON: None FINDINGS: Normal anterior atlantoaxial articulation. Normal odontoid process. Normal cervical lordosis. Normal vertebral bodies and endplates. There is multi-level degenerative disc disease with multilevel disc space narrowing. The soft tissue structures are unremarkable. RAD/Cerv Spine 2 or 3 Views IMPRESSION: Age consistent degenerative changes, no acute findings Electronically Signed: Francesco Ortiz MD at 16:38 EST ,
--- NOTE | 2023-09-10 16:10 | RAD_ITS ---
STUDY: X-RAY - LUMBAR SPINE REASON FOR EXAM: Male, 62 years old. dorsalgia TECHNIQUE: 2 view(s) of the lumbar spine were obtained. COMPARISON: None FINDINGS: Normal lumbar lordosis. There is a dextroscoliosis of the lumbar spine. There is a normal alignment of the vertebrae from L1 to L5. There is a bilateral pars defects and grade 1 spondylolisthesis at L5/S1. Normal vertebral bodies and endplates. Mild disc space narrowing and majority of the lumbar spine, there is significant disc space narrowing at L5/S1. There is no demonstrated fracture. The soft tissue structures are unremarkable. RAD/Lumbar Spine 2 or 3 Views IMPRESSION: Bilateral pars defect and grade 1 spondylolisthesis at L5/S1 with significant disc space narrowing Age consistent degenerative changes elsewhere, no demonstrated fracture or suspicious osseous lesion Mild dextroscoliosis Electronically Signed: Frnacesco Ortiz MD at 16:38 EST ,
--- NOTE | 2023-09-10 16:10 | RAD_ITS ---
STUDY: X-RAY - THORACIC SPINE REASON FOR EXAM: Male, 62 years old. dorsalgia TECHNIQUE: 2 view(s) of the thoracic spine were obtained. COMPARISON: None. FINDINGS: Normal kyphosis of the thoracic spine. There is a levoscoliosis. Normal thoracic vertebrae and endplates. There is multilevel disc space narrowing of the thoracic spine. The soft tissue structures are unremarkable. RAD/Thoracic Spine 2 Views IMPRESSION: Age consistent degenerative changes, no acute findings Electronically Signed: Francesco Ortiz MD at 16:37 EST ,
--- OUTSIDE RECORDS SUMMARY | 2023-09-10 16:18 | XMS RPT_ITS | CCD ---
Author Name Unknown Address [facility] [place] [address] Organization [facility] Results Test Name Value Interpretation Reference Range Facil ity Summary Purpose Family History No Family History Records Found Advance Directives No Advanced Directives Records Found Additional Source Comments (unrecognized sect ion and content) No Status Records Found INFORMATION SOURCE (unrecogn ized section and content) FOR RECORDS PERTAINING TO PATIENTS WHO ARE OR HAVE BEEN ENROLLED IN A CHEMICAL DEPENDENCY/SUBSTANCEABUSE PROGRAM, SOME INFORMATION MAY BE OMITTED. This clinical summary was aggregated from multiple sources. Caution should be exercised in using it in the provision of clinical care. This summary normalizes information from multiple sources, and as a consequence, information in this document may materially change the coding, format and clinical context of patient data. In addition, data may be omitted in some cases. CLINICAL DECISIONS SHOULD BE BASED ON THE PRIMARY CLINICAL RECORDS. [employer] provides no warranty or guarantee of the accuracy or completeness of information in this document.
== END | disposition home or self-care (01) ==
LOC: MTRAD 15:58
PROVIDERS: PCP Family Medicine; Referring Provider Family Medicine; Visit Provider Family Medicine
DX: M54.2 Cervicalgia (principal)
CPT/HCPCS: 72040; 72070; 72100